=== PATIENT | male | born 1965 | race Caucasian/White ===

== ENCOUNTER 2024-06-29 23:58 | Emergency (ER) | payer OTHER ==
[~2024-06-29] VITALS: Ht 177.8 cm; Wt 80.0 kg
[2024-06-30 00:37] VITALS: O2SAT 97
[2024-06-30] MEDS: IBUPROFEN 600MG TABLET PO ONE (04:41)
[2024-06-30] MEDS ORDERED: IBUP-2029 MT (06:23)
[2024-06-30 06:47] VITALS: BP 131/84; PULSE 90; RESP 17; TEMP 36.66960; O2SAT 100
== END 2024-06-30 06:48 | disposition home or self-care (01) ==
LOC: ER 23:58
DX: S80.11XA Contusion of right lower leg, initial encounter (principal); V49.9XXA Car occupant (driver) (passenger) injured in unspecified traffic accident, initial encounter; Y93.89 Activity, other specified; Y92.89 Other specified places as the place of occurrence of the external cause; Y99.8 Other external cause status
CPT/HCPCS: 71101; 73590; 99284